=== PATIENT | female | born 1990 | race Caucasian/White ===

== ENCOUNTER 2019-07-28 23:49 | Emergency (ER) | payer BC, OTHER ==
--- NOTE | 2019-07-29 00:21 | ER Document Report ---
ED Medical Screen (RME) - General Mode of Arrival: Ambulatory Information source: Patient TRAVEL OUTSIDE OF THE [place] IN LAST 30 DAYS: No - Related Data Home Medications: MECLIZINE. DIAZAPAM. ZYRTEC <KATI CRAMER - Last Filed: 07/29/19 00:19> <KARLI DICK JR - Last Filed: 07/29/19 01:04> - General Chief Complaint: Dizziness Stated Complaint: DIZZINESS Time Seen by Provider: 07/29/19 00:13 Notes: HPI; 9-year-old female past medical history significant for TMJ presents emerge ncy room complaining of worsening dizziness and headache for the past 3 days. States she went to urgent care yesterday had a negative test. Was diagnosed with vertigo. States she was discharged home on Zyrtec, prednisone, Valium, and meclizine. Has been taking all the medications without relief. States her symptoms are worse tonight feels like the room spinning. Gets worse when she is going from a laying or sitting position to a standing position. Denies any recent head trauma or head injury. Complains of nausea but no vomiting. PE: Alert and oriented x3, mild distress noted. PERRLA, EOMI. lungs: Clear to auscultation without rales rhonchi wheezes. Heart: Regular rate rhythm without murmurs rubs or gallops. I have greeted and performed a rapid initial assessment of this patient. A comprehensive ED assessment and evaluation of the patient, analysis of test results and completion of the medical decision making process will be conducted by additional ED providers. I have specifically instructed the patient or family members with the patient to immediately return to any nursing staff should anything change in the patient's condition or with their chief complaint. (KATI CRAMER) - Related Data Allergies/Adverse Reactions: No Known Allergies Allergy (Verified 07/29/19 00:12) Past Medical History - Social History Frequency of alcohol use: None Drug Abuse: None Renal/ Medical History: Denies: Hx Peritoneal Dialysis Past Surgical History: Reports: Hx Breast Surgery - reduction, Hx Tonsillectomy - addenoidectomy - Immunizations Hx Diphtheria, Pertussis, Tetanus Vaccination: - unknown <KATI CRAMER - Last Filed: 07/29/19 00:19> Physical Exam - Vital signs Vitals: Temp Pulse Resp BP Pulse Ox 98.6 F 90 20 143/88 H 97 07/28/19 23:56 07/28/19 23:56 07/28/19 23:56 07/28/19 23:56 07/28/19 23:56 Course - Laboratory Result Diagrams: 07/29/19 00:26 07/29/19 00:26 <BAREFOOTKARLI Sarah LEUNG - Last Filed: 07/29/19 01:04> - Vital Signs Vital signs: Temp Pulse Resp BP Pulse Ox 98.6 F 90 20 143/88 H 97 07/29/19 00:12 07/28/19 23:56 07/28/19 23:56 07/28/19 23:56 07/28/19 23:56 - Laboratory Laboratory results interpreted by me: 07/29/19 07/29/19 07/29/19 00:26 00:26 00:26 WBC 16.1 H Absolute Neuts (auto) 12.1 H Absolute Monos (auto) 1.5 H Glucose 130 H Total Bilirubin 0.1 L Urine Blood SMALL H Ur Leukocyte Esterase TRACE H
[2019-07-29 00:44] LABS: ABSOLUTE BASOPHILS # (AUTO) 0.1 10^3/uL (0.0-0.2); ABSOLUTE LYMPHOCYTES (AUTO) 2.4 10^3/uL (0.5-4.7); ABSOLUTE MONOCYTES (AUTO) 1.5 10^3/uL (0.1-1.4); ABSOLUTE NEUT (AUTO) 12.1 10^3/uL (1.7-8.2); BASOPHILS % (AUTO) 0.5 % (0-2); EOSINOPHILS % (AUTO) 0.2 % (0-6); HEMATOCRIT 36.8 % (36.0-47.0); HEMOGLOBIN 12.3 g/dL (12.0-15.5); LYMPHOCYTES % (AUTO) 15.1 % (13-45); MEAN CORPUSCULAR HEMOGLOBIN 30.5 pg (27.0-33.4); MEAN CORPUSCULAR HGB CONC 33.3 g/dL (32.0-36.0); MEAN CORPUSCULAR VOLUME 91 fl (80-97); MONOCYTES % (AUTO) 9.3 % (3-13); PLATELET COUNT 303 10^3/uL (150-450); RED BLOOD COUNT 4.02 10^6/uL (3.72-5.28); RED CELL DISTRIBUTION WIDTH 13.7 % (11.5-14.0); SEGMENTED NEUTROPHILS % (AUTO) 74.9 % (42-78); TOTAL CELLS COUNTED % (AUTO) 100 %; WHITE BLOOD COUNT 16.1 10^3/uL (4.0-10.5)
[2019-07-29 00:52] LABS: APPEARANCE,URINE SLIGHTLY-CLOUDY; BILIRUBIN,URINE NEGATIVE (NEGATIVE); COLOR,URINE YELLOW; GLUCOSE, URINE NEGATIVE (NEGATIVE); KETONES,URINE NEGATIVE (NEGATIVE); LEUKOCYTE ESTERASE,URINE TRACE (NEGATIVE); NITRITE,URINE NEGATIVE (NEGATIVE); PROTEIN,URINE NEGATIVE (NEGATIVE); URINE SPECIFIC GRAVITY 1.021; UROBILINOGEN,URINE NEGATIVE mg/dL (<2.0)
[2019-07-29 00:59] LABS: ALBUMIN 4.3 g/dL (3.5-5.0); ALKALINE PHOSPHATASE 54 U/L (38-126); ANION GAP 6 (5-19); ASPARTATE AMINO TRANSFERASE 26 U/L (14-36); BILIRUBIN,TOTAL 0.1 mg/dL (0.2-1.3); BLOOD UREA NITROGEN 10 mg/dL (7-20); CALCIUM 9.4 mg/dL (8.4-10.2); CARBON DIOXIDE 27 mmol/L (22-30); CHLORIDE 107 mmol/L (98-107); GLUCOSE 130 mg/dL (75-110); POTASSIUM 3.8 mmol/L (3.6-5.0); TOTAL PROTEIN 7.2 g/dL (6.3-8.2)
--- NOTE | 2019-07-29 01:03 | ER Document Report ---
ED General - General Chief Complaint: Dizziness Stated Complaint: DIZZINESS Time Seen by Provider: 07/29/19 00:13 Mode of Arrival: Ambulatory Information source: Patient Notes: triage note 07/29/19 00:14 - ED [id number] : 1990 Patient Age: [age] Y/O FEMALE PRESENTS WITH DIZZINESS (SPINNING OF THE ROOM) AND NAUSEA. PT WAS SEEN IN URGENT CARE ON SUNDAY, DX WITH VERTIGO. DENIES HEAD INJURY, LOC. PT REPORTS THAT SYMPTOMS NOT GETTING BETTER. APC IN TO ASSESS. Alisa INPATIENT CARE MANAGER RN notes HPI; 9-year-old female past medical history significant for TMJ presents emergency room complaining of worsening dizziness and headache for the past 3 days. States she went to urgent care yesterday had a negative test. Was diagnosed with vertigo. States she was discharged home on Zyrtec, prednisone, Valium, and meclizine. Has been taking all the medications without relief. States her symptoms are worse tonight feels like the room spinning. Gets worse when she is going from a laying or sitting position to a standing position. Denies any recent head trauma or head injury. Complains of nausea but no vomiting. PE: Alert and oriented x3, mild distress noted. PERRLA, EOMI. lungs: Clear to auscultation without rales rhonchi wheezes. Heart: Regular rate rhythm without murmurs rubs or gallops. my notes 29-year-old female arrives with 3-week history of having weight loss program at home with her with a rowing machine and some weight machines. Patient works at [employer] 5 days a week and had to leave her job early because of dizziness. She reports 3 weeks ago she had a left earache but was told on exam that her ear looked fine. She thought she was having some problems from her TMJ. She even went to her dentist and had her guard changed. They told her to take some Tylenol and Motrin 3 times a day for her symptoms. Patient has been feeling more dizzy for the last 1 week but especially over the last 3 days. She saw urgent care and they put her on Valium prednisone 23 times a day as well as Zyrtec and meclizine. She reports she has had no benefit from her for new medications. Her blood sugar was 100 when she had it checked 3 days ago it was 130 today with a 16,000 white count. She also reports she is been having chills and fever over the last several days with pink cheeks. No one in her family has rheumatoid arthritis or lupus. She has had headaches for the last 1 week which she reports as a frontal headache pointing to her eyebrow area. She denies any blurry vision but she also denies any nuchal rigidity chest pain cough cold skin rash spider bites animal bites foreign travel exposure to silver. Patient reports tonight while she was at home with her she felt the room was spinning around her. TRAVEL OUTSIDE OF THE [place] IN LAST 30 DAYS: No - HPI Onset: Last week Onset/Duration: Sudden, Persistent, Worse Severity: Moderate Pain Level: 3 Associated symptoms: Chills, Earache, Fever, Headache, Weakness - Related Data Allergies/Adverse Reactions: No Known Allergies Allergy (Verified 07/29/19 00:12) Home Medications: MECLIZINE. DIAZAPAM. ZYRTEC Past Medical History - General Information source: Patient - Social History Smoking Status: Never Smoker Cigarette use (# per day): No Chew tobacco use (# tins/day): No Smoking Education Provided: No Frequency of alcohol use: None Drug Abuse: None Lives with: Family Family History: Reviewed & Not Pertinent Patient has suicidal ideation: No Patient has homicidal ideation: No Renal/ Medical History: Denies: Hx Peritoneal Dialysis Past Surgical History: Reports: Hx Breast Surgery - reduction, Hx Tonsillectomy - addenoidectomy - Immunizations Hx Diphtheria, Pertussis, Tetanus Vaccination: - unknown Review of Systems - Review of Systems Constitutional: See HPI, Chills, Fever, Malaise, Recent illness EENT: See HPI, Ear pain - on left, Sinus pressure Cardiovascular: See HPI, Dizziness, Lightheaded Respiratory: No symptoms reported Gastrointestinal: No symptoms reported Genitourinary: No symptoms reported Female Genitourinary: No symptoms reported Musculoskeletal: No symptoms reported Skin: No symptoms reported, Rash - Bilateral pink cheeks Hematologic/Lymphatic: No symptoms reported Neurological/Psychological: No symptoms reported, Weakness, Other - dizziness Physical Exam - Vital signs Vitals: Temp Pulse Resp BP Pulse Ox 98.6 F 90 20 143/88 H 97 07/28/19 23:56 07/28/19 23:56 07/28/19 23:56 07/28/19 23:56 07/28/19 23:56 Interpretation: Hypertensive - General General appearance: Anxious - HEENT Head: Normocephalic, Atraumatic Eyes: Normal Conjunctiva: Normal Cornea: Normal Extraocular movements intact: Yes Eyelashes: Normal Pupils: PERRL Ears: Normal External canal: Normal Tympanic membrane: Serous effusion - L>R Sinus: Frontal, Tenderness Nasal: Normal Mouth/Lips: Normal Mucous membranes: Normal Pharynx: Normal Neck: Normal - Respiratory Respiratory status: No respiratory distress Chest status: Nontender Breath sounds: Normal Chest palpation: Normal - Cardiovascular Rhythm: Regular Heart sounds: Normal auscultation Murmur: No - Abdominal Inspection: Normal Distension: No distension Bowel sounds: Normal Tenderness: Nontender Organomegaly: No organomegaly - Rectal Hemorrhoids: Other - deferred - Genitourinary External exam: Other - deferred - Back Back: Normal - Extremities General upper extremity: Normal inspection, Nontender, Normal color, Normal ROM, Normal temperature General lower extremity: Normal inspection, Nontender, Normal color, Normal ROM, Normal temperature, Normal weight bearing. No: Charley's sign - Neurological Neuro grossly intact: Yes - pos barany Cognition: Normal Orientation: AAOx4 [place] Coma Scale Eye Opening: Spontaneous [place] Coma Scale Verbal: Oriented [place] Coma Scale Motor: Obeys Commands [place] Coma Scale Total: 15 Speech: Normal Motor strength normal: LUE, RUE, LLE, RLE Sensory: Normal - Psychological Associated symptoms: Anxious - Skin Skin Temperature: Warm Skin Moisture: Dry Skin Color: [place] - teri cheeks Course - Vital Signs Vital signs: Temp Pulse Resp BP Pulse Ox 98.6 F 90 20 143/88 H 97 07/29/19 00:12 07/28/19 23:56 07/28/19 23:56 07/28/19 23:56 07/28/19 23:56 - Laboratory Result Diagrams: 07/29/19 00:26 07/29/19 00:26 Laboratory results interpreted by me: 07/29/19 07/29/19 07/29/19 00:26 00:26 00:26 WBC 16.1 H Absolute Neuts (auto) 12.1 H Absolute Monos (auto) 1.5 H Glucose 130 H Total Bilirubin 0.1 L Creatine Kinase Urine Blood SMALL H Ur Leukocyte Esterase TRACE H 07/29/19 00:26 WBC Absolute Neuts (auto) Absolute Monos (auto) Glucose Total Bilirubin Creatine Kinase 188 H Urine Blood Ur Leukocyte Esterase - Diagnostic Test Radiology reviewed: Reports reviewed - CT Head neg Critical Care Note - Critical Care Note Total time excluding time spent on procedures (mins): 90 Comments: I advised patient to stop her Valium her 1 day of 3 times daily 20 mg prednisone her Zyrtec. I do advise patient to continue meclizine. She appeared to understand most of her tests were done but her coronavirus and ADRIANNE are pending Discharge - Discharge Clinical Impression: Labyrinthine disorder Qualifiers: Laterality: unspecified laterality Qualified Code(s): H81.90 - Unspecified disorder of vestibular function, unspecified ear Serous otitis media Qualifiers: Chronicity: unspecified Laterality: unspecified laterality Qualified Code(s): H65.90 - Unspecified nonsuppurative otitis media, unspecified ear Condition: Good Disposition: HOME, SELF-CARE Additional Instructions: Follow-up with neurologist and with ENT as directed return to ER as needed and also follow-up with your personal doctor. May stop your steroids and Valium and your Zyrtec. Continue with your meclizine as needed. We will also try some Bactroban Nasal and some Periactin nightly.. Also advised to stop any excessive head motion with exercise program. Prescriptions: Cyproheptadine HCl [Periactin 4 Mg Tablet] 4 mg PO HSP PRN 30 Days #30 tablet PRN Reason: Dizziness Forms: Return to Work
[2019-07-29 01:10] LABS: URINE AMPHETAMINES SCREEN NEGATIVE; URINE BARBITURATES SCREEN NEGATIVE; URINE COCAINE SCREEN NEGATIVE; URINE MARIJUANA (THC) SCREEN NEGATIVE; URINE METHADONE SCREEN NEGATIVE; URINE PHENCYCLIDINE SCREEN NEGATIVE
[2019-07-29 01:11] LABS: URINE BENZODIAZEPINES SCREEN UNCONFIRMED POSITIVE
--- NOTE | 2019-07-29 02:00 | RADIOLOGY REPORT (SQ) ---
CT HEAD WITHOUT IV CONTRAST CLINICAL STATEMENT: dizzy TECHNIQUE: Axial CT images from skull base to vertex without IV contrast. This exam was performed according to our departmental dose optimization program, and includes the following measures where applicable: automated exposure control, adjustment of the mAs and/or kVp according to patient size and/or exam, and an iterative reconstruction algorithm. COMPARISON: AP FINDINGS: There is no acute intracranial hemorrhage, mass, mass effect or abnormal extra-axial fluid collection. No evidence of an acute territorial infarct is identified. The ventricles are normal. Calvaria: The skull base and calvaria demonstrate no abnormality. Soft tissue piercing is seen in the left nostril. Paranasal sinuses: Visualized portions of the orbits and paranasal sinuses are unremarkable. skull base: Unremarkable IMPRESSION: No acute intracranial abnormality.
[2019-07-29] MEDS ORDERED: MUPIROCIN 2% OINTMENT 22 GM TP ONE (02:50)
[2019-07-29 03:18] VITALS: BP 116/70
[2019-07-31 10:44] LABS: ANTINUCLEAR ANTIBODIES Negative (Negative)
== END 2019-07-29 03:19 | disposition home or self-care (01) ==
LOC: ER 23:49
DX: Z20.828 Contact with and (suspected) exposure to other viral communicable diseases (principal); H81.90 Unspecified disorder of vestibular function, unspecified ear; H65.90 Unspecified nonsuppurative otitis media, unspecified ear; R11.0 Nausea; R51 Headache; R50.9 Fever, unspecified; R53.1 Weakness; R53.81 Other malaise; R21 Rash and other nonspecific skin eruption; Z79.899 Other long term (current) drug therapy
CPT/HCPCS: 99285; 36415; 82550; 84443; 84703; 85025; 87635; 86308; 80053; 81001; 80307; 86038; 70450; J3490; C9803